=== PATIENT | male | born 1930 | race Caucasian/White ===

== ENCOUNTER 2017-01-03 21:06 | Inpatient (IN) | payer MEDICARE, OTHER ==
[~2017-01-03] VITALS: Ht 177.8 cm; Wt 75.0 kg
[~2017-01-03 21:06] MED LIST: AMLO10 PO; ASPI325T PO; FURO40TA PO; LEVE250 PO; LEVO175T2 PO; LISI-363 PO; MEVA40TA6 PO
[2017-01-03 22:13] VITALS: BP 138/97; PULSE 114; RESP 16; TEMP 98.8; O2SAT 95
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
[2017-01-03 23:44] LABS: AUTOMATED NEUTROPHIL # 6.7 TH/MM3 (1.8-7.7); BASOPHIL % 0.6 % (0.0-2.0); EOSINOPHIL % 0.6 % (0.0-4.0); HEMATOCRIT 40.5 % (39.0-51.0); HEMO FLAGS DIFF FINAL; LYMPH % 13.2 % (9.0-44.0); LYMPHOCYTE # 1.1 TH/MM3 (1.0-4.8); MEAN CELL VOLUME 93.5 FL (80.0-100.0); MEAN CORPUSCULAR HEMOGLOBIN 31.9 PG (27.0-34.0); MEAN CORPUSCULAR HGB CONC 34.1 % (32.0-36.0); MONO % 5.3 % (0.0-8.0); NEUT % 80.3 % (16.0-70.0); PLATELET COUNT 138 TH/MM3 (150-450); RED BLOOD COUNT 4.33 MIL/MM3 (4.50-5.90); RED CELL DISTRIBUTION WIDTH 14.5 % (11.6-17.2); WHITE BLOOD COUNT 8.3 TH/MM3 (4.0-11.0)
[2017-01-04 00:03] LABS: ALT (GPT) 17 U/L (12-78); ANION GAP 7 MEQ/L (5-15); AST (GOT) 30 U/L (15-37); BICARBONATE 28.1 MEQ/L (21.0-32.0); BLOOD UREA NITROGEN 42 MG/DL (7-18); CHLORIDE 110 MEQ/L (98-107); GLOMERULAR FILTRATION RATE 37 ML/MIN (>89); SODIUM (NA) 145 MEQ/L (136-145)
[2017-01-04 00:05] LABS: ALKALINE PHOSPHATASE 53 U/L (45-117); TOTAL BILIRUBIN ADULT 0.7 MG/DL (0.2-1.0)
[2017-01-04 00:06] LABS: POTASSIUM 4.2 MEQ/L (3.5-5.1)
[2017-01-04 05:13] LABS: BACTERIA, URINE RARE /hpf; BLOOD, URINE NEG (NEG); GLUCOSE,URINE TRACE mg/dL (NEG); HYALINE CAST, URINE 8 /lpf (RARE); KETONE, URINE TRACE mg/dL (NEG); MUCUS URINE FEW /lpf (OCC); NITRITE,URINE NEG (NEG); SQUAMOUS EPITHELIAL CELL URINE <1 /hpf (0-5); URINE COLOR YELLOW (YELLW/STRAW)
[2017-01-04 05:14] LABS: COMMENT (UR) CULT NOT INDICATED; CULTURE IF INDICATED CULT NOT INDICATED
[2017-01-04 05:19] LABS: AMPHETAMINE, URINE NEG (NEG); BARBITURATES, URINE NEG (NEG); COCAINE, URINE NEG (NEG)
[2017-01-04 06:15] VITALS: BP 170/91; PULSE 100; RESP 18; TEMP 97.8; O2SAT 96
[2017-01-04] MEDS ORDERED: LORazepam 0.5 MG TAB age > 65 yrs PO PRN (06:15)
[2017-01-04] MEDS ORDERED: ALUMINUM/MAGNESIUM/SIMETH 30 ML CUP PO PRN (06:15)
[2017-01-04] MEDS ORDERED: ACETAMINOPHEN 325 MG TAB PO PRN (06:15)
[2017-01-04] MEDS ORDERED: MAGNESIUM HYDROXIDE SUSP 30 ML CUP PO PRN (06:15)
[2017-01-04] MEDS ORDERED: LORazepam 2 MG/ML VIAL - age > 65 yrs IM PRN (06:15)
[2017-01-04] MEDS ORDERED: amLODIPine BESYLATE 5 MG TAB PO SCH (09:00)
[2017-01-04] MEDS ORDERED: LISINOPRIL 20 MG TAB PO SCH (09:00)
[2017-01-04] MEDS ORDERED: FUROSEMIDE 40 MG TAB PO SCH (09:00)
[2017-01-04] MEDS ORDERED: levETIRAcetam 500 MG/5 ML UDC PO SCH (09:00)
[2017-01-04] MEDS ORDERED: PRAVASTATIN SOD 40 MG TAB PO SCH (09:00)
[2017-01-04] MEDS ORDERED: ASPIRIN 325 MG TAB PO SCH (09:00)
[2017-01-04 10:29] VITALS: BP 122/57; PULSE 112; RESP 16
[2017-01-04 10:56] LABS: FREE T4 0.67 NG/DL (0.76-1.46); HDL CHOLESTEROL 53.6 MG/DL (40.0-60.0); LDL CHOLESTEROL 84 MG/DL (0-99)
--- NOTE | 2017-01-04 14:00 | EKG ---
Date Performed: 01/04/2017 Time Performed: 10:13:00 PTAGE: 86 years EKG: ATRIAL FIBRILLATION WITH RAPID VENTRICULAR RESPONSE INDETERMINATE AXIS RIGHT BUNDLE BRANCH BLOCK ABNORMAL ECG Compared to PREVIOUS TRACING , right bundle branch block is new, clinical correlation is recommended. PREVIOUS TRACIN03/02/2016 16.01 DOCTOR: Jet Davis Interpretating Date/Time 01/04/2017 13:58:32
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
[2017-01-04 16:26] LABS: HEMOGLOBIN A1a 1.4 %; HEMOGLOBIN A1b 0.8 %; HEMOGLOBIN Ao 84.5 %; HEMOGLOBIN F 0.9 %; HEMOGLOBIN LA1C 2.1 %; HEMOGLOBIN P3 4.1 %
[2017-01-05] MEDS ORDERED: LEVOTHYROXINE SODIUM 112 MCG TAB PO SCH (06:00)
[2017-01-05] MEDS ORDERED: LEVOTHYROXINE SODIUM 25 MCG TAB PO SCH (06:00)
[2017-01-05] MEDS ORDERED: LISI-515 PO (09:17)
[2017-01-05] MEDS ORDERED: SINE10100 PO (09:17)
[2017-01-05] MEDS ORDERED: LEVE250 PO (09:17)
[2017-01-05] MEDS ORDERED: LEVO.15 PO (09:17)
[2017-01-05] MEDS ORDERED: COUM5TAB PO (09:18)
--- NOTE | 2017-01-06 10:12 | RADRPT ---
EXAM DATE/TIME: 01/06/2017 09:50 [place] COMPARISON: CT BRAIN W/O CONTRAST, March 02, 2016, 15:45. INDICATIONS : Altered mental status RADIATION DOSE: 36.24 CTDIvol (mGy) MEDICAL HISTORY : Non-responsive. SURGICAL HISTORY : Non-responsive. ENCOUNTER: Initial ACUITY: 4 - 6 days PAIN SCALE: Non-responsive LOCATION: cranial TECHNIQUE: Multiple contiguous axial images were obtained of the head. Using automated exposure control and adj ustment of the mA and/or kV according to patient size, radiation dose was kept as low as reasonably a chievable to obtain optimal diagnostic quality images. DICOM format image data is available electro nically for review and comparison. FINDINGS: CEREBRUM: The exam demonstrates old areas of cortical infarct in the occipital cortex bilaterally. These are st able compared to previous dated 03/02/16. The ventricles are normal in size and configuration. No mass is identified. No findings to indicate acute cortical infarction are seen by CT. No acute intracrani al hemorrhage is present. POSTERIOR FOSSA: The cerebellum and brainstem are intact. The 4th ventricle is midline. The cerebellopontine angle i s unremarkable. EXTRACRANIAL: The visualized portion of the orbits is intact. SKULL: The calvaria is intact. No evidence of skull fracture. CONCLUSION: Old areas of cortical infarct involving the occipital cortex bilaterally unchanged from prior exam. N o acute abnormality is identified. Carter Ennis MD on January 06, 2017 at 10:07 Board Certified Radiologist. This report was verified electronically.
== END 2017-01-04 15:40 | disposition still patient (30) | DRG 880 ==
LOC: NEPC 21:06 → NEDA 01-04 05:44 → H250 01-04 06:00
PROVIDERS: ADMIT Psychiatry & Neurology Psychiatry; ATTEND Psychiatry & Neurology Psychiatry
DX: F05 Delirium due to known physiological condition (principal); G30.9 Alzheimer's disease, unspecified; F02.81 Dementia in other diseases classified elsewhere, unspecified severity, with behavioral disturbance; I48.91 Unspecified atrial fibrillation; G40.909 Epilepsy, unspecified, not intractable, without status epilepticus; I10 Essential (primary) hypertension; K21.9 Gastro-esophageal reflux disease without esophagitis; Z79.82 Long term (current) use of aspirin; E03.9 Hypothyroidism, unspecified
CPT/HCPCS: 80053; 80061; 80307; 81001; 82607; 83036; 84439; 84443; 85025; 85652; 86038; 93005

== ENCOUNTER 2017-01-04 16:03 | Inpatient (IN) | payer MEDICARE, OTHER ==
[2017-01-04 16:00] VITALS: BP 149/84; PULSE 126; RESP 18; TEMP 98.8; O2SAT 99
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
[2017-01-04] MEDS: SODIUM CHLOR 0.9% 1000 ML INJ 1,000 ML IV SCH (17:00)
[2017-01-04] MEDS ORDERED: ONDANSETRON HCL 4 MG/2 ML VIAL IV PUSH PRN (17:30)
[2017-01-04] MEDS ORDERED: CALCIUM CARBONATE 500 MG CHEWABLE TAB CHEW PRN (17:30)
[2017-01-04 18:00] VITALS: PULSE 90
[2017-01-04 20:00] VITALS: BP 138/100; PULSE 90; RESP 20; TEMP 98; O2SAT 98
[2017-01-04 20:14] LABS: INTERNATIONAL NORMALIZED RATIO 2.8 RATIO; PROTHROMBIN TIME - PATIENT 32.2 SEC (9.8-11.6)
[2017-01-04] MEDS ORDERED: LORazepam 2 MG/ML VIAL IV PUSH ONE (21:00)
[2017-01-04] MEDS ORDERED: amLODIPine BESYLATE 5 MG TAB PO SCH (21:00)
[2017-01-04] MEDS: levETIRAcetam 250 MG TAB PO SCH (21:00)
[2017-01-04] MEDS ORDERED: LORazepam 2 MG/ML VIAL IV PUSH PRN (22:00)
[2017-01-04] MEDS ORDERED: cloNIDine HCL 0.1 MG TAB PO PRN (22:15)
[2017-01-04 22:52] VITALS: O2SAT 94
[2017-01-04] MEDS ORDERED: CHLORHEXIDINE GLUCONATE 2 % 1 PACK (2 CLOTHS)(extra cloths) TOPICAL PRN (23:00)
[2017-01-05] VITALS: BP 137/83; PULSE 87; RESP 23; TEMP 98.1; O2SAT 97
[2017-01-05] MEDS: SODIUM CHLOR 0.9% 1000 ML INJ 1,000 ML IV SCH (02:38)
[2017-01-05 04:00] VITALS: BP 171/96; PULSE 72; PULSE 75; RESP 28; TEMP 98; O2SAT 96
[2017-01-05] MEDS ORDERED: CHLORHEXIDINE GLUCONATE 2 % 1 PACK (2 CLOTHS)(taper/protocol) TOPICAL SCH (04:00)
[2017-01-05 05:24] LABS: INTERNATIONAL NORMALIZED RATIO 2.4 RATIO; PROTHROMBIN TIME - PATIENT 27.6 SEC (9.8-11.6)
[2017-01-05 05:43] LABS: BICARBONATE 28.7 MEQ/L (21.0-32.0); POTASSIUM 3.8 MEQ/L (3.5-5.1)
[2017-01-05] MEDS ORDERED: LEVOTHYROXINE SODIUM 150 MCG TAB PO SCH (06:00)
[2017-01-05 08:00] VITALS: BP 121/76; PULSE 87; PULSE 88; RESP 28; TEMP 98; O2SAT 96
[2017-01-05] MEDS: levETIRAcetam 250 MG TAB PO SCH (08:37)
[2017-01-05] MEDS ORDERED: CARBIDOPA/LEVODOPA 10 MG/100 MG TAB PO SCH (09:00)
[2017-01-05] MEDS ORDERED: LISINOPRIL 20 MG TAB PO SCH (09:00)
[2017-01-05] MEDS ORDERED: amLODIPine BESYLATE 5 MG TAB PO SCH (09:00)
--- NOTE | 2017-01-05 09:12 | HHI.DCPOC ---
Discharge Care Plan Diagnosis: (1) Acute worsening of stage 3 chronic kidney disease (2) Chronic a-fib (3) Parkinson disease (4) Hypothyroidism (5) Hx of seizure disorder (6) Hypertension (7) Dementia Goals to Promote Your Health * To prevent worsening of your condition and complications * To maintain your health at the optimal level Directions to Meet Your Goals Take your medications as prescribed Follow your dietary instruction Follow activity as directed Keep your appointments as scheduled Take your immunizations and boosters as scheduled If your symptoms worsen call your PCP, if no PCP go to Urgent Care Center or Emergency Room Smoking is Dangerous to Your Health. Avoid second hand smoke Call the 24-hour hour crisis hotline for domestic abuse at Obie Abbott MD Jan 05, 2017 09:12
[2017-01-05] MEDS ORDERED: LEVE250 PO (09:17)
[2017-01-05] MEDS ORDERED: LISI-515 PO (09:17)
[2017-01-05] MEDS ORDERED: SINE10100 PO (09:17)
[2017-01-05] MEDS ORDERED: LEVO.15 PO (09:17)
[2017-01-05] MEDS ORDERED: COUM5TAB PO (09:18)
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
== END 2017-01-05 09:40 | DRG 684 ==
LOC: HIMN 16:03
PROVIDERS: ADMIT Hospitalist; ATTEND Hospitalist
DX: N17.9 Acute kidney failure, unspecified (principal); E86.0 Dehydration; D69.6 Thrombocytopenia, unspecified; G20 Parkinson's disease; I48.2 Chronic atrial fibrillation; F03.90 Unspecified dementia, unspecified severity, without behavioral disturbance, psychotic disturbance, mood disturbance, and anxiety; I12.9 Hypertensive chronic kidney disease with stage 1 through stage 4 chronic kidney disease, or unspecified chronic kidney disease; E89.0 Postprocedural hypothyroidism; E55.9 Vitamin D deficiency, unspecified; N18.3 Chronic kidney disease, stage 3 (moderate); G40.909 Epilepsy, unspecified, not intractable, without status epilepticus; E78.5 Hyperlipidemia, unspecified; Z86.73 Personal history of transient ischemic attack (TIA), and cerebral infarction without residual deficits; K21.9 Gastro-esophageal reflux disease without esophagitis; K44.9 Diaphragmatic hernia without obstruction or gangrene; N40.0 Benign prostatic hyperplasia without lower urinary tract symptoms; Z86.010 Personal history of colon polyps
CPT/HCPCS: 80048; 85610; 87641; J2060; J7030

== ENCOUNTER 2017-01-05 09:23 | Inpatient (IN) | payer MEDICARE, OTHER ==
[~2017-01-05 09:23] MED LIST changes: +COUM5TAB PO; +LEVO.15 PO; +LISI-515 PO; +SINE10100 PO
[2017-01-05 11:13] VITALS: BP 149/86; PULSE 86; RESP 17; TEMP 97.4; O2SAT 100
[2017-01-05] MEDS ORDERED: LORazepam 2 MG/ML VIAL IM PRN (11:30)
[2017-01-05] MEDS ORDERED: ACETAMINOPHEN 325 MG TAB PO PRN (11:30)
[2017-01-05] MEDS ORDERED: ALUMINUM/MAGNESIUM/SIMETH 30 ML CUP PO PRN (11:30)
[2017-01-05] MEDS ORDERED: LORazepam 1 MG TAB PO PRN (11:30)
[2017-01-05] MEDS ORDERED: MAGNESIUM HYDROXIDE SUSP 30 ML CUP PO PRN (11:30)
[2017-01-05] MEDS: LORazepam 2 MG/ML VIAL IM PRN (17:30)
[2017-01-05 18:01] VITALS: BP 92/52; PULSE 68; RESP 15; TEMP 97.6; O2SAT 95
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
[2017-01-05] MEDS: HALOPERIDOL 0.5 MG TAB PO SCH (21:00)
[2017-01-05] MEDS ORDERED: amLODIPine BESYLATE 5 MG TAB PO SCH (21:00)
[2017-01-05] MEDS: levETIRAcetam 250 MG TAB PO SCH (21:00)
[2017-01-06] MEDS: LEVOTHYROXINE SODIUM 150 MCG TAB PO SCH (06:00)
[2017-01-06 07:04] VITALS: BP 157/98; PULSE 105; RESP 18; TEMP 96.9; O2SAT 96
[2017-01-06] MEDS: levETIRAcetam 250 MG TAB PO SCH (08:13)
[2017-01-06] MEDS: LISINOPRIL 20 MG TAB PO SCH (08:13)
[2017-01-06] MEDS: HALOPERIDOL 0.5 MG TAB PO SCH ×2 (08:13→21:00)
[2017-01-06] MEDS: ASPIRIN 325 MG TAB PO SCH (08:13)
[2017-01-06] MEDS: PRAVASTATIN SOD 40 MG TAB PO SCH (08:13)
[2017-01-06] MEDS ORDERED: CARBIDOPA/LEVODOPA 10 MG/100 MG TAB PO SCH (09:00)
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
[2017-01-06 12:30] VITALS: BP 100/68; PULSE 100; RESP 18; TEMP 98.6; O2SAT 97
--- NOTE | 2017-01-06 14:24 | PD.PSY.CON ---
Provisional Diagnosis Admission Date Jan 05, 2017 at 09:34 History of Present Illness Service Psychiatry Consult Requested By Dr. esquivel Reason for Consult Second opinion Primary Care Physician Jet Gaines MD HPI Patient is an 86-year-old male admitted to Dr. mathews's service under the act. His H&P reviewed and agreed with. Patient seen by me in his room patient somewhat irritable confused confusion all 4 spheres and able to care for himself. Dr. mathews has done first opinion petition supporting I agree patient meets criteria for involuntary psychiatric hospitalization on the thus will cosign second opinion petition supporting Past Family Social History Coded Allergies: *MDRO Multi-Drug Resistant Organism (Verified Adverse Reaction, Unknown, MRSA, 01/05/17) MRSA PCR (narers) - POSITIVE - 01/04/17 Active Scripts Levothyroxine (Synthroid)150 Mcg [id number] Mcg PO DAILY@0600 #0 TAB Prov:Obie Abbott MD 01/05/17 Lisinopril 20 Mg Tab20 Mg PO DAILY #0 TAB Prov:Obie Abbott MD 01/05/17 Levetiracetam (Keppra)250 Mg [id number] Mg PO Q12HR #0 TAB Prov:Obie Abbott MD 01/05/17 Carbidopa-Levodopa (Sinemet)10-100 Mg Tab1 Tab PO DAILY #0 TAB Prov:Obie Abbott MD 01/05/17 Reported Medications Warfarin (Coumadin)5 Mg Tab5 Mg PO DAILY #30 TAB Ref 0 01/05/17 Aspirin (Aspirin 325 Mg Tab)325 Mg Hgd466 Mg PO DAILY 10/09/14 Furosemide 40 Mg Tab40 Mg PO DAILY 11/27/11 Lovastatin (Mevacor)40 Mg Tab40 Mg PO DAILY 12/05/10 Amlodipine Besylate (Norvasc)10 Mg Tab5 Mg PO BID 12/05/10 Discontinued Reported Medications Lisinopril 20 mg 20 Mg Tab1 Tab PO BID 03/02/16 Levothyroxine Sodium (Levothyroxine 175 mcg)175 Mcg Vfr412 Mcg PO DAILY 10/09/14 Levetiracetam (Keppra)250 Mg [id number] Mg PO BID 11/27/11 Current Medications Medications (Trade) Dose Ordered Sig/Shilo Route Start Time Stop Time Status Last Admin (Tylenol) 650 mg Q4H PRN PO 01/05/17 11:30 (Milk Of Magnesia Liq) 30 ml DAILY PRN PO 01/05/17 11:30 (Mag-Al Plus Susp Liq) 30 ml Q6H PRN PO 01/05/17 11:30 (Aspirin) 325 mg DAILY PO 01/06/17 09:00 01/06/17 08:13 (Synthroid) 150 mcg DAILY@0600 PO 01/06/17 06:00 (Prinivil) 20 mg DAILY PO 01/06/17 09:00 01/06/17 08:13 (Pravachol) 40 mg DAILY PO 01/06/17 09:00 01/06/17 08:13 (Coumadin Booklet) 1 ONCE ONCE .XX 01/06/17 16:00 01/06/17 16:01 (Ativan Inj) 0.5 mg Q6H PRN IM 01/05/17 17:30 01/05/17 17:30 (Haldol) 0.5 mg BID PO 01/05/17 21:00 01/06/17 08:13 (Keppra) 500 mg Q12HR PO 01/06/17 21:00 Physical Exam Vital Signs Vital Signs Date Time Temp Pulse Resp B/P Pulse Ox O2 Delivery O2 Flow Rate FiO2 01/06/17 12:30 98.6 100 18 100/68 97 01/05/17 20:00 Nasal Cannula 3.00 I/O 01/05/17 01/05/17 01/06/17 08:00 16:00 00:00 Intake Total 25 ml Balance 25 ml Mental Status Examination Speech: Other (markedly disorganized) Orientation: Person (vaguely) Memory: Impaired (describe) Thought Process: Other (markedly disorganized) Thought Content: Other (disorganized) Language Poor Fund of Knowledge Poor Hallucination Type: None (deny) Attention and Concentration: Easily Distracted Suicidal Ideation: No Previous Suicide Attempts: No Homicidal Ideation: No Previous Homicide Attempts: No Insight: Poor Judgment: Poor Affect: Other (slight increase range intensity) Mood: Irritable Motor Activity: Abnormal gait-specify Assessment & Plan Problem List: (1) Dementia ICD Code: F03.90 Assessment & Plan Estimated LOS: Walter Garza MD Jan 06, 2017 14:24
[2017-01-06] MEDS ORDERED: WARFARIN SOD 5 MG TAB PO SCH (16:00)
[2017-01-06 18:00] VITALS: BP 114/79; PULSE 67; RESP 18; TEMP 97.5; O2SAT 94
[2017-01-06] MEDS: levETIRAcetam 500 MG TAB PO SCH (21:00)
[2017-01-06] MEDS: LORazepam 2 MG/ML VIAL IM PRN (21:00)
[2017-01-07] MEDS: LEVOTHYROXINE SODIUM 150 MCG TAB PO SCH (06:00)
[2017-01-07 06:11] VITALS: BP 165/92; PULSE 98; RESP 16; TEMP 97.2; O2SAT 97
[2017-01-07] MEDS: levETIRAcetam 500 MG TAB PO SCH ×2 (11:26→21:02)
[2017-01-07] MEDS: ASPIRIN 325 MG TAB PO SCH (11:26)
[2017-01-07] MEDS: PRAVASTATIN SOD 40 MG TAB PO SCH (11:27)
[2017-01-07] MEDS: LISINOPRIL 20 MG TAB PO SCH (11:27)
[2017-01-07] MEDS: HALOPERIDOL 0.5 MG TAB PO SCH ×2 (11:27→21:02)
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
[2017-01-07 18:00] VITALS: BP 114/76; PULSE 73; RESP 18; TEMP 98.1; O2SAT 99
[2017-01-08 06:00] VITALS: BP 179/85; PULSE 89; RESP 16; TEMP 98.1
[2017-01-08] MEDS: LEVOTHYROXINE SODIUM 150 MCG TAB PO SCH (06:40)
[2017-01-08] MEDS: levETIRAcetam 500 MG TAB PO SCH (09:00)
[2017-01-08 09:32] LABS: AUTOMATED NEUTROPHIL # 7.4 TH/MM3 (1.8-7.7); BASOPHIL % 0.5 % (0.0-2.0); EOSINOPHIL # 0.2 TH/MM3 (0-0.4); EOSINOPHIL % 1.9 % (0.0-4.0); HEMO FLAGS DIFF FINAL; LYMPH % 10.6 % (9.0-44.0); MEAN CORPUSCULAR HEMOGLOBIN 30.9 PG (27.0-34.0); MEAN CORPUSCULAR HGB CONC 32.9 % (32.0-36.0); MONO % 5.5 % (0.0-8.0); NEUT % 81.5 % (16.0-70.0); PLATELET COUNT 141 TH/MM3 (150-450); RED BLOOD COUNT 4.47 MIL/MM3 (4.50-5.90); RED CELL DISTRIBUTION WIDTH 14.7 % (11.6-17.2); WHITE BLOOD COUNT 9.1 TH/MM3 (4.0-11.0)
[2017-01-08 09:37] LABS: INTERNATIONAL NORMALIZED RATIO 1.7 RATIO; PROTHROMBIN TIME - PATIENT 18.7 SEC (9.8-11.6)
[2017-01-08 10:10] LABS: ANION GAP 8 MEQ/L (5-15); AST (GOT) 50 U/L (15-37); BICARBONATE 25.7 MEQ/L (21.0-32.0); BLOOD UREA NITROGEN 46 MG/DL (7-18); CHLORIDE 110 MEQ/L (98-107); GLOMERULAR FILTRATION RATE 47 ML/MIN (>89); POTASSIUM 4.4 MEQ/L (3.5-5.1); SODIUM (NA) 144 MEQ/L (136-145)
[2017-01-08] MEDS: PRAVASTATIN SOD 40 MG TAB PO SCH (10:44)
[2017-01-08] MEDS: ASPIRIN 325 MG TAB PO SCH (10:44)
[2017-01-08] MEDS: LISINOPRIL 20 MG TAB PO SCH (10:44)
[2017-01-08 10:47] LABS: ALKALINE PHOSPHATASE 54 U/L (45-117); ALT (GPT) 23 U/L (12-78); CREATINE KINASE 1017 U/L (39-308); HDL CHOLESTEROL 53.3 MG/DL (40.0-60.0); LDL CHOLESTEROL 70 MG/DL (0-99); TOTAL BILIRUBIN ADULT 1.4 MG/DL (0.2-1.0)
[2017-01-08] MEDS: HALOPERIDOL 0.5 MG TAB PO SCH (10:47)
[2017-01-08 11:17] LABS: CKMB 10.9 NG/ML (0.5-3.6)
[2017-01-08 16:32] LABS: HEMOGLOBIN A1a 1.1 %; HEMOGLOBIN A1b 0.8 %; HEMOGLOBIN Ao 85.2 %; HEMOGLOBIN F 0.9 %
[2017-01-08] MEDS ORDERED: levETIRAcetam 500 MG/5 ML UDC PO SCH (21:00)
== END 2017-01-08 19:30 | disposition short-term general hospital (02) | DRG 884 ==
LOC: H4EA 09:34 → H250 01-06 12:35
PROVIDERS: ADMIT Psychiatry & Neurology Psychiatry; ATTEND Psychiatry & Neurology Psychiatry
DX: F03.90 Unspecified dementia, unspecified severity, without behavioral disturbance, psychotic disturbance, mood disturbance, and anxiety (principal); N17.9 Acute kidney failure, unspecified; I48.91 Unspecified atrial fibrillation; Z78.1 Physical restraint status; E86.0 Dehydration; G20 Parkinson's disease; I12.9 Hypertensive chronic kidney disease with stage 1 through stage 4 chronic kidney disease, or unspecified chronic kidney disease; E03.9 Hypothyroidism, unspecified; F29 Unspecified psychosis not due to a substance or known physiological condition; N40.0 Benign prostatic hyperplasia without lower urinary tract symptoms; Z86.73 Personal history of transient ischemic attack (TIA), and cerebral infarction without residual deficits; N18.3 Chronic kidney disease, stage 3 (moderate); G40.909 Epilepsy, unspecified, not intractable, without status epilepticus
CPT/HCPCS: 80053; 80061; 82550; 82552; 83036; 85025; 85610; J2060

== ENCOUNTER 2017-01-08 20:24 | Inpatient (IN) | payer MEDICARE ==
[~2017-01-08] VITALS: Ht 175.3 cm; Wt 70.2 kg
[2017-01-08 19:44] VITALS: BP 145/94; PULSE 112; RESP 18; TEMP 97.8; O2SAT 98
[~2017-01-08 20:24] MED LIST changes: -LEVO175T2 PO; -LISI-363 PO
[2017-01-08] MEDS ORDERED: MAGNESIUM HYDROXIDE SUSP 30 ML CUP PO PRN ×2 (21:15→22:00)
[2017-01-08] MEDS ORDERED: SODIUM CHLORIDE 0.9% FLUSH 10 ML FLUSH IV FLUSH PRN ×2 (21:15)
[2017-01-08] MEDS ORDERED: LACTULOSE SYRUP 20 GM/30 ML CUP PO PRN ×2 (21:15→22:00)
[2017-01-08] MEDS ORDERED: BISACODYL 10 MG SUPP RECTAL PRN ×2 (21:15→22:00)
[2017-01-08] MEDS ORDERED: SENNOSIDES 8.6 MG TAB PO PRN ×2 (21:15→21:45)
[2017-01-08] MEDS ORDERED: NALOXONE HCL 0.4 MG/ML AMP IV PRN ×2 (21:15)
[2017-01-08] MEDS ORDERED: ACETAMINOPHEN 325 MG TAB PO PRN (22:00)
[2017-01-08] MEDS: D5-1/2 NS + KCL 20 MEQ INJ 1,000 ML IV SCH (23:15)
[2017-01-09] VITALS: BP 145/83; PULSE 109; RESP 18; TEMP 97.8; O2SAT 100
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
[2017-01-09] MEDS: LORazepam 2 MG/ML VIAL IV PUSH PRN ×2 (00:24→20:29)
[2017-01-09] MEDS ORDERED: LORazepam 2 MG/ML VIAL IV PRN (00:45)
[2017-01-09 04:00] VITALS: BP 161/83; PULSE 94; RESP 18; TEMP 97.5; O2SAT 96
[2017-01-09] MEDS: LEVOTHYROXINE SODIUM 150 MCG TAB PO SCH (06:55)
[2017-01-09] MEDS: D5-1/2 NS + KCL 20 MEQ INJ 1,000 ML IV SCH (06:55)
[2017-01-09 08:00] VITALS: BP 144/105; PULSE 107; RESP 20; TEMP 98; O2SAT 97
[2017-01-09 08:07] LABS: AUTOMATED NEUTROPHIL # 5.8 TH/MM3 (1.8-7.7); BASOPHIL % 0.3 % (0.0-2.0); EOSINOPHIL # 0.2 TH/MM3 (0-0.4); EOSINOPHIL % 2.6 % (0.0-4.0); HEMATOCRIT 40.8 % (39.0-51.0); HEMO FLAGS DIFF FINAL; LYMPH % 11.6 % (9.0-44.0); LYMPHOCYTE # 0.9 TH/MM3 (1.0-4.8); MEAN CELL VOLUME 95.9 FL (80.0-100.0); MEAN CORPUSCULAR HEMOGLOBIN 32.1 PG (27.0-34.0); MEAN CORPUSCULAR HGB CONC 33.5 % (32.0-36.0); MONO % 7.8 % (0.0-8.0); NEUT % 77.7 % (16.0-70.0); PLATELET COUNT 132 TH/MM3 (150-450); RED BLOOD COUNT 4.26 MIL/MM3 (4.50-5.90); RED CELL DISTRIBUTION WIDTH 14.3 % (11.6-17.2); WHITE BLOOD COUNT 7.4 TH/MM3 (4.0-11.0)
[2017-01-09 08:12] LABS: BICARBONATE 19.9 MEQ/L (21.0-32.0); POTASSIUM 3.8 MEQ/L (3.5-5.1)
[2017-01-09] MEDS ORDERED: WARFARIN SOD 5 MG TAB PO SCH (09:00)
[2017-01-09] MEDS ORDERED: SODIUM CHLORIDE 0.9% FLUSH 10 ML FLUSH IV FLUSH SCH (09:00)
[2017-01-09] MEDS ORDERED: FUROSEMIDE 40 MG TAB PO SCH (09:00)
[2017-01-09] MEDS ORDERED: DOCUSATE SODIUM 50 MG/SENNA 8.6 MG TAB PO SCH (09:00)
[2017-01-09] MEDS ORDERED: levETIRAcetam 250 MG TAB PO SCH (09:00)
[2017-01-09] MEDS: ASPIRIN 325 MG TAB PO SCH (09:53)
[2017-01-09] MEDS: CARBIDOPA/LEVODOPA 10 MG/100 MG TAB PO SCH (09:54)
[2017-01-09] MEDS: DOCUSATE SODIUM 50 MG/SENNA 8.6 MG TAB PO SCH ×2 (09:55→20:16)
[2017-01-09] MEDS: LISINOPRIL 20 MG TAB PO SCH (09:55)
[2017-01-09] MEDS: PRAVASTATIN SOD 40 MG TAB PO SCH (09:55)
[2017-01-09] MEDS: SODIUM CHLORIDE 0.9% FLUSH 10 ML FLUSH IV FLUSH SCH ×2 (09:56→20:16)
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
[2017-01-09] MEDS ORDERED: HALOPERIDOL 0.5 MG TAB PO ONE (10:45)
[2017-01-09] MEDS: SODIUM CHLOR 0.9% 1000 ML INJ 1,000 ML IV SCH ×2 (10:45→22:40)
[2017-01-09 12:00] VITALS: BP 117/67; PULSE 89; RESP 20; TEMP 97.6; O2SAT 98
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
[2017-01-09 16:02] VITALS: BP 110/58; PULSE 82; RESP 16; TEMP 98.2; O2SAT 100
[2017-01-09 20:00] VITALS: BP 155/84; PULSE 116; RESP 18; TEMP 97.7; O2SAT 97
[2017-01-09] MEDS: HALOPERIDOL 0.5 MG TAB PO SCH (20:16)
[2017-01-10] VITALS: BP 145/97; PULSE 105; RESP 18; TEMP 97.8; O2SAT 95
[2017-01-10 04:00] VITALS: BP 134/83; PULSE 105; RESP 18; TEMP 98.7; O2SAT 95
[2017-01-10] MEDS: SODIUM CHLOR 0.9% 1000 ML INJ 1,000 ML IV SCH ×2 (05:23→21:40)
[2017-01-10] MEDS: LEVOTHYROXINE SODIUM 150 MCG TAB PO SCH (05:24)
[2017-01-10 08:00] VITALS: BP 150/74; PULSE 97; RESP 20; TEMP 97.4; O2SAT 99
[2017-01-10] MEDS: DOCUSATE SODIUM 50 MG/SENNA 8.6 MG TAB PO SCH ×2 (09:00→21:46)
[2017-01-10] MEDS: SODIUM CHLORIDE 0.9% FLUSH 10 ML FLUSH IV FLUSH SCH ×2 (09:00→21:00)
[2017-01-10] MEDS: ASPIRIN 325 MG TAB PO SCH (09:08)
[2017-01-10] MEDS: HALOPERIDOL 0.5 MG TAB PO SCH (09:08)
[2017-01-10] MEDS: PRAVASTATIN SOD 40 MG TAB PO SCH (09:08)
[2017-01-10] MEDS: LISINOPRIL 20 MG TAB PO SCH (09:08)
[2017-01-10] MEDS: CARBIDOPA/LEVODOPA 10 MG/100 MG TAB PO SCH (09:08)
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
[2017-01-10 10:29] LABS: BICARBONATE 28.9 MEQ/L (21.0-32.0); POTASSIUM 4.7 MEQ/L (3.5-5.1)
[2017-01-10 12:00] VITALS: BP 140/83; PULSE 97; RESP 20; TEMP 97.6; O2SAT 100
[2017-01-10 16:00] VITALS: BP 137/88; PULSE 109; RESP 20; TEMP 97.8; O2SAT 96
[2017-01-10 20:00] VITALS: BP 146/77; PULSE 105; RESP 18; TEMP 97.6; O2SAT 95
[2017-01-11] VITALS: BP 120/85; PULSE 98; RESP 18; TEMP 97.6; O2SAT 97
[2017-01-11] MEDS: LORazepam 0.5 MG TAB PO PRN ×2 (00:49→21:31)
[2017-01-11 04:00] VITALS: BP 117/78; PULSE 92; RESP 18; TEMP 97.6; O2SAT 100
[2017-01-11] MEDS: LEVOTHYROXINE SODIUM 150 MCG TAB PO SCH (05:44)
[2017-01-11 08:15] VITALS: BP 146/86; PULSE 109; RESP 20; TEMP 97.7; O2SAT 96
[2017-01-11 08:40] LABS: AUTOMATED NEUTROPHIL # 7.5 TH/MM3 (1.8-7.7); BASOPHIL % 0.3 % (0.0-2.0); EOSINOPHIL # 0.1 TH/MM3 (0-0.4); EOSINOPHIL % 1.6 % (0.0-4.0); HEMATOCRIT 42.3 % (39.0-51.0); HEMO FLAGS DIFF FINAL; LYMPH % 10.1 % (9.0-44.0); LYMPHOCYTE # 0.9 TH/MM3 (1.0-4.8); MEAN CELL VOLUME 94.2 FL (80.0-100.0); MEAN CORPUSCULAR HEMOGLOBIN 31.6 PG (27.0-34.0); MEAN CORPUSCULAR HGB CONC 33.6 % (32.0-36.0); MONO % 8.3 % (0.0-8.0); NEUT % 79.7 % (16.0-70.0); PLATELET COUNT 159 TH/MM3 (150-450); WHITE BLOOD COUNT 9.4 TH/MM3 (4.0-11.0)
[2017-01-11] MEDS: PRAVASTATIN SOD 40 MG TAB PO SCH (09:08)
[2017-01-11] MEDS: LISINOPRIL 20 MG TAB PO SCH (09:09)
[2017-01-11] MEDS: DOCUSATE SODIUM 50 MG/SENNA 8.6 MG TAB PO SCH ×2 (09:09→21:31)
[2017-01-11] MEDS: ASPIRIN 325 MG TAB PO SCH (09:09)
[2017-01-11] MEDS: SODIUM CHLORIDE 0.9% FLUSH 10 ML FLUSH IV FLUSH SCH ×2 (09:10→21:31)
[2017-01-11] MEDS: SODIUM CHLOR 0.9% 1000 ML INJ 1,000 ML IV SCH ×2 (09:10→21:32)
[2017-01-11 10:39] LABS: ANION GAP 12 MEQ/L (5-15); AST (GOT) 59 U/L (15-37); BICARBONATE 22.8 MEQ/L (21.0-32.0); BLOOD UREA NITROGEN 35 MG/DL (7-18); CHLORIDE 110 MEQ/L (98-107); GLOMERULAR FILTRATION RATE 70 ML/MIN (>89); POTASSIUM 3.6 MEQ/L (3.5-5.1); SODIUM (NA) 145 MEQ/L (136-145)
[2017-01-11 10:57] LABS: ALKALINE PHOSPHATASE 53 U/L (45-117); ALT (GPT) 30 U/L (12-78); CREATINE KINASE 730 U/L (39-308); TOTAL BILIRUBIN ADULT 1.6 MG/DL (0.2-1.0)
[2017-01-11 11:21] LABS: CKMB 8.1 NG/ML (0.5-3.6)
[2017-01-11 12:10] VITALS: BP 131/71; PULSE 97; RESP 19; TEMP 98; O2SAT 96
--- NOTE | 2017-01-11 14:55 | PD.CONS ---
Consult Service Palliative Care . Consult Requested By Dr. Abbott . Primary Care Physician Jet Gaines MD . Reason for Consultation a. To assist with evaluation and management of symptoms including: Confusion , agitation, decreased appetite b. To assist medical decision maker(s) with: better understanding of current medical conditions; weighing benefits/burdens of medical treatment options; making medical treatment decisions. . HPI History of Present Illness Mr. Pina is an 86-year-old male with Alzheimer's dementia who was brought to [facility] ED on 01/03/2017 by the [employer] under the Phipps act. Reportedly the patient was unable to recognize his family members and began spraying them with RAID, then locked them out of the house and was threatening to harm them if they tried to enter the house. The patient was exhibiting cognitive deficits and a basic dementia workup was ordered. He was also exhibiting some psychotic symptoms in the form of delusions of persecution. The patient was initially going to a admitted to psych but had to be transferred to a medical floor secondary to dehydration with VIVIAN and atrial fibrillation with RVR. Since the initial admission, the patient has moved back and forth between the psych floor and medical unit multiple times secondary to FTT, inadequate nutritional intake, dehydration and intermittent atrial fibrillation with RVR. He is currently in room 1417 where IV fluids are being administered. CT head on 01/06/2017 code old areas of cortical infarct involving the occipital cortex bilaterally unchanged from prior exam; no acute abnormalities were identified. Psychiatry continues to follow this patient who is exhibiting ongoing agitation and intermittent aggressiveness. Most recent diagnostic data available on 01/11/2017 includes: * WBC: 9.4, hemoglobin 14.2, hematocrit 42.3, platelets 159, neutrophils 79.7% * Sodium: 145, potassium 3.6, chloride 110, carbon dioxide 22.8, glucose 89, calcium 8.7 * BUN: 35, creatinine 1.02, GFR 70 * Total bilirubin: 1.6, AST 59, ALT 30, alkaline phosphatase 53 * Total creatine kinase: 7:30 CK-MB: 8.1 * Total protein: 6.2, albumin 3.6 Palliative Care was consulted to assist with symptom management and to discuss with the patient/family the benefits and burdens of his current illnesses and the options regarding future care. Patient is confused and tearful on exam, speech is nonsensical at times. No evidence of acute distress observed; he denies shortness of breath or pain. Multiple bruising is noted on upper and lower extremities bilaterally. Patient is in non-violence soft restraints for safety. . Function/Cognitive Trajectory Per family, patient has a history of Alzheimer's disease but was fairly independent with ADLs prior to this hospitalization. They state that they did notice the patient was becoming increasingly forgetful and recognized some of the utility bills were not being paid. Additionally, the patient was described as being "mean" to his (Gideon) who has more advanced dementia and was dependent on the patient for much of her care. . Review of Systems ROS Limitations: Clinical Condition (ROS limited secondary to patient's confusion; additional information obtained from reviewing previous notes and family report.), Altered Mental Status, Poor Historian Constitutional: COMPLAINS OF: Fatigue, Change in appetite (poor appetite) Ears, nose, mouth, throat: DENIES: Hearing loss, Epistaxis Respiratory: DENIES: Hemoptysis, Shortness of breath Cardiovascular: DENIES: Lower Extremity Edema Gastrointestinal: DENIES: Abdominal pain Hematologic/Lymphatics: COMPLAINS OF: Bruising Neurologic: COMPLAINS OF: Seizures Psychiatric: COMPLAINS OF: Anxiety, Depression, Delusions Past Family Social History Coded Allergies: *MDRO Multi-Drug Resistant Organism (Verified Adverse Reaction, Unknown, MRSA, 01/05/17) MRSA PCR (grazyna) - POSITIVE - 01/04/17 Past Medical History Alzheimer's disease Hypertension Hyperlipidemia History of seizure disorder Atrial fibrillation with RVR Hypothyroidism Parkinson's disease BPH CKI GERD Vitamin D deficiency History of CVA Erectile dysfunction . Past Surgical History Pending family meeting . Reported Medications Lisinopril 20 mg daily Aspirin 325 Mg Tab (Aspirin) 325 Mg Tab 325 Mg PO DAILY Levothyroxine 150mcg daily Keppra ([id number] bid Furosemide 40 Mg Tab 40 Mg PO DAILY Mevacor (Lovastatin) 40 Mg Tab 40 Mg PO DAILY Norvasc (Amlodipine Besylate) 5mg po bid carbidopa/levadopa 25/100mg daily coumadin 5mg daily [id number] daily . Current Medications Medications (Trade) Dose Ordered Sig/Shilo Route Start Time Stop Time Status Last Admin (Norvasc) 5 mg BID PO 01/09/17 09:00 01/11/17 09:08 (Aspirin) 325 mg DAILY PO 01/09/17 09:00 01/11/17 09:09 (Synthroid) 150 mcg DAILY@0600 PO 01/09/17 06:00 01/11/17 05:44 (Prinivil) 20 mg DAILY PO 01/09/17 09:00 01/11/17 09:09 (Pravachol) 40 mg DAILY PO 01/09/17 09:00 01/11/17 09:08 (Tylenol) 650 mg Q4H PRN PO 01/08/17 22:00 (Narcan Inj) 0.4 mg UNSCH PRN IV 01/08/17 21:15 (NS Flush) 2 ml UNSCH PRN IV FLUSH 01/08/17 21:15 (NS Flush) 2 ml BID IV FLUSH 01/09/17 09:00 01/11/17 09:10 (Narcan Inj) 0.4 mg UNSCH PRN IV 01/08/17 21:15 (Lauren-Colace) 1 tab BID PO 01/09/17 09:00 01/11/17 09:09 (Milk Of Magnesia Liq) 30 ml Q12HR PRN PO 01/08/17 22:00 (Senokot) 17.2 mg Q12HR PRN PO 01/08/17 21:45 (Dulcolax Supp) 10 mg DAILY PRN RECTAL 01/08/17 22:00 Lactulose 30 ml 30 ml DAILY PRN PO 01/08/17 22:00 (NS 1000 ml Inj) 1,000 ml @ 84 mls/hr [id number] IV 01/09/17 10:45 01/11/17 09:10 (Ativan) 0.5 mg Q12HR PRN PO 01/10/17 13:15 01/11/17 00:49 . Family History Patient's father from an [place]. His mother from, patient's secondary to a stroke. . Substance Use Tobacco: Previous smoker Alcohol: No recent EtOH consumption Prescription med abuse: None known Illicits: None known . Psychosocial History Patient was born and raised in [place]. 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 He has 1 brother and 1 sister, both are . Patient has been to his , Gideon, for approximately 65 years. Together they have 2 adult sons. One son lives with the patient locally, and the other lives in [place]. Apparently the patient's also has dementia and is in the process of moving to an SNF. The patient' s granddaughter, Reema, also lives locally and has requested to speak with Palliative Care to discuss medical treatment goals moving forward. . Spiritual/Cultural Factors Sikh solomon . Living Will: Copy in medical record Health Care Surrogate: Copy in medical record Date completed: 06/21/2011 . Health Care Surrogate(s): Patient's (Gideon) is designated as the healthcare surrogate decision maker. However, she is unable to fill this role secondary to end-stage dementia. The patient's son (Higinio) is designated as the alternate health care surrogate decision maker. . Documented care wishes: A living will was completed on June 21, 2011. Copies have been placed in the patient's paper chart and faxed to HIM to be scanned into the patient's EMR. . Today's verbally stated goals: Patient is unable to verbalized medical treatment goals due to possibly worsening confusion. . Family/friends goals: Palliative care attempted to contact the patient's son/HCS (Higinio) x 2, unable to be a message. Spoke to patient's granddaughter (Reema) and son (Darian) regarding goals of care. They indicate they want to do what the patient would want.They believe he would want his CODE STATUS be changed to no code. They also believe, given the patient's current decline and his documented care wishes , the patient would likely want to transition to comfort focused care at this time. . Ethical and Legal Issues Phone call placed to patient's primary care physician's office, Dr. Gaines. Apparently the patient has completed some written advanced directives, copies of these documents were requested. Awaiting faxed information at this time. . Physical Exam Vital Signs Date Time Temp Pulse Resp B/P Pulse Ox O2 Delivery O2 Flow Rate FiO2 01/11/17 12:10 98.0 97 19 131/71 96 01/11/17 08:15 97.7 109 20 146/86 96 01/11/17 04:00 97.6 92 18 117/78 100 01/11/17 00:00 97.6 98 18 120/85 97 01/10/17 20:00 97.6 105 18 146/77 95 01/10/17 16:00 97.8 109 20 137/88 96 . 01/10/17 01/11/17 19:00 07:00 Intake Total 0 ml 240 ml Output Total 100 ml Balance 0 ml 140 ml Intake Oral 0 ml 240 ml Output Urine Total 100 ml # Voids 1 3 # Bowel Movements 0 0 . Exam CONSTITUTIONAL/GENERAL: This is a frail, elderly male patient who is confused and tearful on exam. TUBES/LINES/DRAINS: Condom catheter, PIV 1 SKIN: No jaundice, rashes, or lesions. Ecchymoses on upper and lower extremities. Bilateral wrist with gauze dressings and what appears to be dried blood, likely secondary to chronic anticoagulation therapy. HEAD: Atraumatic. Normocephalic. EYES: Pupils equal and round and reactive. No scleral icterus. Minimal injection or drainage noted. Fundi not examined. ENT: Hearing grossly normal. Nose without bleeding or purulent drainage. NECK: Trachea midline. Supple, nontender. No palpable thyroid enlargement or nodularity. CARDIOVASCULAR: Regular rate and rhythm without murmurs, gallops, or rubs. No JVD. Peripheral pulses symmetric. RESPIRATORY/CHEST: Symmetric, unlabored respirations. Clear to auscultation. Breath sounds equal bilaterally. No wheezes, rales, or rhonchi. GASTROINTESTINAL: Abdomen soft, non-tender, nondistended. No hepato-splenomegaly , or palpable masses. No guarding. Bowel sounds present. GENITOURINARY: Without palpable bladder distension. Flannery catheter in place. MUSCULOSKELETAL: Extremities without clubbing, cyanosis, or edema. LYMPHATICS: No palpable cervical or supraclavicular adenopathy. NEUROLOGICAL: Confused, tearful. Responds to some simple questions with brief answers; speech is primarily nonsensical. PSYCHIATRIC: + Anxiety . Diagnostic Tests Laboratory Laboratory Tests Test 01/09/17 01/10/17 01/11/17 07:15 09:09 07:00 White Blood Count 7.4 TH/MM3 9.4 TH/MM3 (4.0-11.0) (4.0-11.0) Red Blood Count 4.26 MIL/MM3 4.50 MIL/MM3 (4.50-5.90) (4.50-5.90) Hemoglobin 13.7 GM/DL 14.2 GM/DL (13.0-17.0) (13.0-17.0) Hematocrit 40.8 % 42.3 % (39.0-51.0) (39.0-51.0) Mean Corpuscular Volume 95.9 FL 94.2 FL (80.0-100.0) (80.0-100.0) Mean Corpuscular Hemoglobin 32.1 PG 31.6 PG (27.0-34.0) (27.0-34.0) Mean Corpuscular Hemoglobin 33.5 % 33.6 % Concent (32.0-36.0) (32.0-36.0) Red Cell Distribution Width 14.3 % 14.0 % (11.6-17.2) (11.6-17.2) Platelet Count 132 TH/MM3 159 TH/MM3 (150-450) (150-450) Mean Platelet Volume 10.0 FL 9.8 FL (7.0-11.0) (7.0-11.0) Neutrophils (%) (Auto) 77.7 % 79.7 % (16.0-70.0) (16.0-70.0) Lymphocytes (%) (Auto) 11.6 % 10.1 % (9.0-44.0) (9.0-44.0) Monocytes (%) (Auto) 7.8 % (0.0-8.0) 8.3 % (0.0-8.0) Eosinophils (%) (Auto) 2.6 % (0.0-4.0) 1.6 % (0.0-4.0) Basophils (%) (Auto) 0.3 % (0.0-2.0) 0.3 % (0.0-2.0) Neutrophils # (Auto) 5.8 TH/MM3 7.5 TH/MM3 (1.8-7.7) (1.8-7.7) Lymphocytes # (Auto) 0.9 TH/MM3 0.9 TH/MM3 (1.0-4.8) (1.0-4.8) Monocytes # (Auto) 0.6 TH/MM3 0.8 TH/MM3 (0-0.9) (0-0.9) Eosinophils # (Auto) 0.2 TH/MM3 0.1 TH/MM3 (0-0.4) (0-0.4) Basophils # (Auto) 0.0 TH/MM3 0.0 TH/MM3 (0-0.2) (0-0.2) CBC Comment DIFF FINAL DIFF FINAL Differential Comment Sodium Level 143 MEQ/L 145 MEQ/L 145 MEQ/L (136-145) (136-145) (136-145) Potassium Level 3.8 MEQ/L 4.7 MEQ/L 3.6 MEQ/L (3.5-5.1) (3.5-5.1) (3.5-5.1) Chloride Level 112 MEQ/L 109 MEQ/L 110 MEQ/L (98-107) (98-107) (98-107) Carbon Dioxide Level 19.9 MEQ/L 28.9 MEQ/L 22.8 MEQ/L (21.0-32.0) (21.0-32.0) (21.0-32.0) Anion Gap 11 MEQ/L (5-15) 7 MEQ/L (5-15) 12 MEQ/L (5-15) Blood Urea Nitrogen 45 MG/DL (7-18) 36 MG/DL (7-18) 35 MG/DL (7-18) Creatinine 1.17 MG/DL 1.14 MG/DL 1.02 MG/DL (0.60-1.30) (0.60-1.30) (0.60-1.30) Estimat Glomerular Filtration 59 ML/MIN (>89) 61 ML/MIN (>89) 70 ML/MIN (>89) Rate Random Glucose 88 MG/DL 92 MG/DL 89 MG/DL (74-106) (74-106) (74-106) Calcium Level 8.8 MG/DL 8.9 MG/DL 8.7 MG/DL (8.5-10.1) (8.5-10.1) (8.5-10.1) Total Bilirubin 1.6 MG/DL (0.2-1.0) Aspartate Amino Transf 59 U/L (15-37) (AST/SGOT) Alanine Aminotransferase 30 U/L (12-78) (ALT/SGPT) Alkaline Phosphatase 53 U/L (45-117) Total Creatine Kinase 730 U/L (39-308) Creatine Kinase MB 8.1 NG/ML (0.5-3.6) Creatine Kinase MB % 1.1 % (0.0-4.0) Total Protein 6.2 GM/DL (6.4-8.2) Albumin 3.6 GM/DL (3.4-5.0) . Result Diagram: 01/11/17 0700 01/11/17 0700 Patient/Family Conference Present at Family Conference: Spoke with patient's granddaughter at bedside and again in conference area; also spoke to patient's son (Darian) via telephone. Attempted to contact patient' s son (Santy) 2; no voicemail was set up and was unable to leave a message. . Family Conference Location: Bedside, Hallway, Telephone Issues Discussed: * Palliative care role, purpose, approach * Additional medical, psychosocial, and spiritual history * Patients general health, functional status, and cognitive changes in the months leading up to the current hospitalization * Patient/family understanding of the current medical problems * Patient/family understanding of prognosis * Patients goals of care as best understood from advance directives and/or conversations and/or values * Current medical treatment options and benefits/burdens of those options * Likely scenarios comparing ongoing aggressive care with a transition to comfort measures only * Questions answered to the best of my ability * Palliative care contact information provided . Assessment and Plan Disease Oriented Problem List: (1) TIA (transient ischemic attack) (2) Atrial fibrillation with RVR (3) Acute worsening of stage 3 chronic kidney disease (4) Paranoid psychosis (5) Dementia (6) Failure to thrive in adult (7) Chronic a-fib (8) Hypertension (9) Hyperlipidemia (10) Hypothyroidism (11) Hx of seizure disorder (12) Parkinson disease Symptom Scale: (1) Confusion (2) Agitation (3) Decreased appetite Pertinent Non-Medical Issues Psychosocial: Patient was born and raised in [place]. 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 He has 1 brother and 1 sister, both are . Patient has been to his , Gideon, for approximately 65 years. Together they have 2 adult sons. One son lives with the patient locally, and the other lives in [place]. Apparently the patient's also has dementia and is in the process of moving to an SNF. The patient's granddaughter, Reema, also lives locally and has requested to speak with Palliative Care to discuss medical treatment goals moving forward. Spiritual: Sikh solomon Legal: Patient is currently not capacitated to participate in medical decision making. Patient's (Gideon) is designated as the healthcare surrogate decision maker. However, she is unable to fill this role secondary to end-stage dementia. The patient's son (Higinio) is designated as the alternate health care surrogate decision maker. Ethical issues impacting care: No known ethical issues impacting at this time. . Important Contacts Santy Pina, son: [phone] Darian Pina, son: ATTEMPTING TO OBTAIN PHONE NUMBER Reema granddaughter: [phone] Gideon Pina, spouse: [phone] . Prognosis Patient is an 86-year-old male with progressively worsening Alzheimer's dementia (as well as multiple comorbid conditions) who was recently brought to [facility] ED on 01/03/2017 under a [place]ipp[place] act. Since that time he has been transferred back and forth between psych and the medical floor for management of dehydration with VIVIAN, failure to thrive and atrial fibrillation with RVR ( currently a poor candidate for ongoing anticoagulation therapy). Patient remains in nonmedical soft restraints secondary to ongoing persistent agitation and aggressiveness. He is refusing to eat; BMI 22.2. A living will was completed on 06/21/2011 and indicates the patient would not want life prolonging interventions or artificial nutrition in the event that he had a end- stage condition, terminal condition or was in a persistent vegetative state. If the patient continues the current disease trajectory; his overall prognosis would be poor. . Code Status: Full Code Plan * FULL CODE * Decision-making: Patient is currently not capacitated to participate in medical decision making. Patient's (Gideon) is designated as the healthcare surrogate decision maker. However, she is unable to fill this role secondary to end-stage dementia. The patient's son (Higinio) is designated as the alternate health care surrogate decision maker. * A living will was completed on June 21, 2011. Copies have been placed in the patient's paper chart and faxed to HIM to be scanned into the patient's EMR. * Goals: Goals remain aggressive pending further conversations with family members * Palliative care attempted to contact the patient's son/HCS (Higinio) x 2, unable to be a message. Spoke to patient's granddaughter (Reema) and son (Darian) regarding goals of care. They indicate they want to do what the patient would want.They believe he would want his CODE STATUS be changed to no code. They also believe, given the patient's current decline and his documented care wishes , the patient would likely want to transition to comfort focused care at this time. * Symptom managementdecreased appetite: Current nutritional intake is not enough to sustain this patient, and his living will indicates he is not amenable to artificial nutrition. BMI: 22.2 Total protein: 6.2, albumin 3.6. Dietary has been consulted, recommendations for supplemental Ensure shakes for added nutrition. * Symptom managementagitation: Having ongoing, persistent agitation requiring non-medical restraints. Psychiatry is following. Recommendations to avoid Haldol which is contraindicated in patients with Parkinson's disease. * Symptom managementconfusion: Persistent confusion likely secondary to progressively worsening Alzheimer's disease, recent hospitalization, electrolyte imbalances/dehydration. Patient currently in nonmedical soft restraints for safety. Requiring ongoing monitoring for safety/comfort, reassurance and redirection when appropriate. Providing ongoing education and support to patient/family. * Palliative care contact information provided to the patient's granddaughter and son (Darian). * Discussed with patient's nurse (Starr) and case management. * Patient appropriate for hospice will referral, discussed with patient's granddaughter and son (Darian) who are indicating comfort focus goals. However, son Son) is the designated health care surrogate and was not reachable via telephone earlier today. In the event that goals remain aggressive, placement will be difficult secondary to ongoing agitation/aggressiveness and poor nutritional intake. * Palliative care will continue to follow this patient throughout his hospitalization to establish trust, assist with symptom management and clarification of medical treatment goals. . Thank you for the opportunity to participate in the care of Mr. Pina. . Attestation To help prompt me to consider important information that might be impacting today's encounter and assessment, information from prior notes written by myself or my colleagues may have been "brought forward" into today's note. My signature on this note, however, is an attestation that I personally performed the exam, history, and/or decision-making noted today, and, unless otherwise indicated, the interactions with patient, family, and staff as well as the review of records all occurred today. I also attest that the listed assessment and stated plan reflect my best clinical judgment today based on the combination of historical information, prior notes, and today's exam/ interactions. When time spent is documented, it refers only to time spent today by the signer, or if indicated, combined time spent today by collaborating physician/nurse practitioner. . Sherron Balderrama Jan 11, 2017 14:55
[2017-01-11 16:07] VITALS: BP 117/66; PULSE 104; RESP 19; TEMP 98; O2SAT 95
--- NOTE | 2017-01-11 17:47 | HHI.PR ---
Subjective Remarks Pt agitated during my visit. Pt eating poorly. Objective Vitals Vital Signs Date Time Temp Pulse Resp B/P Pulse Ox O2 Delivery O2 Flow Rate FiO2 01/11/17 16:07 98.0 104 19 117/66 95 01/11/17 12:10 98.0 97 19 131/71 96 01/11/17 08:15 97.7 109 20 146/86 96 01/11/17 04:00 97.6 92 18 117/78 100 01/11/17 00:00 97.6 98 18 120/85 97 01/10/17 20:00 97.6 105 18 146/77 95 01/10/17 01/10/17 01/11/17 15:00 23:00 07:00 Intake Total 0 ml 120 ml 120 ml Output Total 100 ml Balance 0 ml 120 ml 20 ml Intake Oral 0 ml 120 ml 120 ml Output Urine Total 100 ml # Voids 1 2 1 # Bowel Movements 0 0 0 Result Diagram: 01/11/17 0700 01/11/17 0700 Objective Remarks GENERAL: This is a well-nourished, well-developed patient, in no apparent distress. CARDIOVASCULAR: Regular rate and rhythm without murmurs, gallops, or rubs. RESPIRATORY: Clear to auscultation. Breath sounds equal bilaterally. No wheezes , rales, or rhonchi. GASTROINTESTINAL: Abdomen soft, non-tender, nondistended. Normal active bowel sounds MUSCULOSKELETAL: Extremities without clubbing, cyanosis, or edema. NEURO: Alert & Oriented to self, ABAD A/P Problem List: (1) Failure to thrive in adult Status: Acute Plan: Pt has dementia and admitted to psych unit for psychosis and spraying his family with a can of Raid. He was moved back and forth from psych to med floor for FTT and not eating. dehydration and intermittent afib/rvr At present pt not eating enough to sustain himself nursing reports that he gets very agitated and aggressive at time and restraints were placed. He refuses to eat will try to hydrate him reduce sedating meds and I think he is a poor coumadin candidate at this point prn joaquindol I think palliative consult and even hospice would be appropriate in this pt with severe dementia and now FTT and refusal to eat....obtain family goals/wishes and code status. addendum: pt granddaughter arrived and pt more cooperative for her. She would like to speak with palliative care team to work out goals as she notes the pt's children have not been involved and his is being placed in snf with dementia. 01/11/17 - appreciate input from Palliative Medicine - palliative to discuss hospice and code status with pt's son Santy, Health care surrogate. - I agree that hospice would be appropriate. (2) Dementia Status: Chronic Plan: above (3) Chronic a-fib Status: Chronic Plan: above (4) Hypertension Status: Chronic (5) Hyperlipidemia Status: Chronic (6) Hx of seizure disorder Status: Chronic (7) Hypothyroidism Status: Chronic (8) Parkinson disease Status: Chronic Dwayne Lizarraga DO Jan 11, 2017 17:47
[2017-01-11] MEDS ORDERED: LORazepam 2 MG/ML VIAL IV PUSH ONE (18:00)
[2017-01-11 20:00] VITALS: BP 156/80; PULSE 107; RESP 20; TEMP 97.8; O2SAT 100
[2017-01-12] VITALS: BP 151/87; PULSE 20; RESP 20; TEMP 97.5; O2SAT 96
[2017-01-12 04:00] VITALS: BP 138/91; PULSE 109; RESP 20; TEMP 97.3; O2SAT 100
[2017-01-12] MEDS: LEVOTHYROXINE SODIUM 150 MCG TAB PO SCH (04:45)
[2017-01-12 08:00] VITALS: BP 129/79; PULSE 91; RESP 18; TEMP 97.7; O2SAT 97
[2017-01-12] MEDS: LISINOPRIL 20 MG TAB PO SCH (09:48)
[2017-01-12] MEDS: PRAVASTATIN SOD 40 MG TAB PO SCH (09:48)
[2017-01-12] MEDS: DOCUSATE SODIUM 50 MG/SENNA 8.6 MG TAB PO SCH ×2 (09:48→21:49)
[2017-01-12] MEDS: ASPIRIN 325 MG TAB PO SCH (09:49)
[2017-01-12] MEDS: SODIUM CHLORIDE 0.9% FLUSH 10 ML FLUSH IV FLUSH SCH ×2 (09:49→21:50)
[2017-01-12] MEDS: SODIUM CHLOR 0.9% 1000 ML INJ 1,000 ML IV SCH ×2 (10:15→21:50)
--- NOTE | 2017-01-12 10:51 | HHI.HCPN ---
Palliative care continues to attempt to get in touch with patient's son, Higinio. Attempted x2 yesterday and x2 today. Unable to reach and unable to leave a message as his phone just rings. Also tried patient's home number as notes indicate son Santy was living with the patient. Also unable to reach and unable to leave a message. Left message with granddaughter Reema to inquire about additional contact information for Higinio. Currently awaiting return call. Reportedly family will be in to visit around 3pm today. Palliative care contact information left with nurse to call if family arrives. Palliative care will continue to follow throughout hospitalization. 4pm met with granddaughter Reema and brother, Darrell at patient's bedside. Reema provided additional contact for patient's son, Hiignio (#[phone] or #[phone]). Was able to speak with Higinio who reports he will be at the hospital tomorrow at 10am. Family meeting scheduled for 10am with patient's son Santy, granddaughter Reema and brother Darrell, also patient's son Darian by telephone. Patient's son Santy indicates he does not wish to participate in medical decision making. Patient's brother Darrell states he does not wish to participate because he lives out of state and feels a local person would be better. Per [place] Statutes medical proxy decision making would fall to the granddaughter Reema as patient's is currently in a longterm due to severe dementia, both sons have opted out of decision making, parents are , and brother Darrell opted out; next in hierarchy would be an adult relative. All family members indicate darrell Benavidez would be most appropriate as she lives locally and is most involved and reliable. Yasmin Begum, CONCRETE CURER Jan 12, 2017 10:51
[2017-01-12] MEDS: LORazepam 0.5 MG TAB PO PRN (13:53)
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
[2017-01-12 19:30] VITALS: BP_SYST 101; BP_SYST 134; BP_DIAS 61; BP_DIAS 83; PULSE 122; PULSE 83; RESP 20; TEMP 97.5; O2SAT 96; O2SAT 99
[2017-01-13] VITALS: BP 134/81; PULSE 103; RESP 22; TEMP 97.3; O2SAT 100
[2017-01-13] MEDS: LORazepam 0.5 MG TAB PO PRN ×2 (02:10→16:39)
[2017-01-13 05:00] VITALS: BP 121/80; PULSE 98; RESP 22; TEMP 97.8; O2SAT 100
[2017-01-13] MEDS: LEVOTHYROXINE SODIUM 150 MCG TAB PO SCH (05:19)
[2017-01-13 07:14] LABS: ANION GAP 8 MEQ/L (5-15); AST (GOT) 53 U/L (15-37); BICARBONATE 23.8 MEQ/L (21.0-32.0); BLOOD UREA NITROGEN 29 MG/DL (7-18); CHLORIDE 110 MEQ/L (98-107); GLOMERULAR FILTRATION RATE 87 ML/MIN (>89); POTASSIUM 3.6 MEQ/L (3.5-5.1); SODIUM (NA) 142 MEQ/L (136-145)
[2017-01-13 07:15] LABS: ALT (GPT) 31 U/L (12-78)
[2017-01-13 07:17] LABS: ALKALINE PHOSPHATASE 54 U/L (45-117); CREATINE KINASE 460 U/L (39-308); TOTAL BILIRUBIN ADULT 1.7 MG/DL (0.2-1.0)
[2017-01-13 07:43] LABS: CKMB 7.4 NG/ML (0.5-3.6)
[2017-01-13 08:00] VITALS: BP 141/94; PULSE 99; RESP 20; TEMP 97.7; O2SAT 90
[2017-01-13] MEDS: SODIUM CHLOR 0.9% 1000 ML INJ 1,000 ML IV SCH (10:05)
[2017-01-13] MEDS: ASPIRIN 325 MG TAB PO SCH (10:18)
[2017-01-13] MEDS: DOCUSATE SODIUM 50 MG/SENNA 8.6 MG TAB PO SCH (10:19)
[2017-01-13] MEDS: SODIUM CHLORIDE 0.9% FLUSH 10 ML FLUSH IV FLUSH SCH (10:19)
[2017-01-13] MEDS: LISINOPRIL 20 MG TAB PO SCH (10:19)
[2017-01-13] MEDS: PRAVASTATIN SOD 40 MG TAB PO SCH (10:19)
--- NOTE | 2017-01-13 11:50 | HHI.HCPN ---
Reason for visit a. To assist with evaluation and management of symptoms including: Confusion , agitation, decreased appetite b. To assist medical decision maker(s) with: better understanding of current medical conditions; weighing benefits/burdens of medical treatment options; making medical treatment decisions. . Subjective/Interval History Mr. Pina is an 86-year-old male with Alzheimer's dementia who was brought to [facility] ED on 01/03/2017 by the [place] [employer] under the Phipps act. The patient was exhibiting cognitive deficits and a basic dementia workup was ordered. He was also exhibiting some psychotic symptoms in the form of delusions of persecution. The patient was initially going to a admitted to psych but had to be transferred to a medical floor secondary to dehydration with VIVIAN and atrial fibrillation with RVR. Since the initial admission, the patient has moved back and forth between the psych floor and medical unit multiple times secondary to FTT, inadequate nutritional intake, dehydration and intermittent atrial fibrillation with RVR. Patient remains in nonmedical, soft restraints secondary to ongoing agitation and aggressiveness. Taking only bites of applesauce with medication administration, otherwise refusing to eat or drink. Odium: 142, potassium 3.6, chloride 110, carbon dioxide 23.8, glucose 85, calcium 8.8 Total bilirubin: 1.7, AST 53, ALT 31, alkaline phosphatase 54 Total creatine kinase: 460, CK-MB 7.4, CK-MB% 1.6 BUN: 29, creatinine 0.84, GFR 87 Protein: 5.8, albumin 3.4 Palliative care continues to follow this patient to assist with symptom management and clarification of medical treatment goals. Met with patient's granddaughter/HCP and brother (Darian) this morning. Patient has completed written advanced directives with state he would not want life prolonging interventions, specifically artificial nutrition, if he were found to have a terminal condition, end-stage condition or be in persistent vegetative state. Given the patient's advanced age, recent acute decline, multiple comorbid conditions and refusal to eat/drink, his life expectancy is less than 6 months. The family has requested the services for symptom management and end-of-life care; recommendations that the patient be transferred to a hospice care center for acute symptom management of agitation and aggression. . . Family/friend interactions Meeting with grand daughter Reema (now designated as the [facility]) and patient's brother Darrell held this morning at 1000 to discuss code status and goals of care. Advance Directives Living Will: Copy in medical record Health Care Surrogate: Copy in medical record Advance Directive Specifics Date completed: 06/21/2011 . Health Care Surrogate(s): Patient's (Gideon) is designated was originally the healthcare surrogate decision maker. However, she is unable to fill this role secondary to end-stage dementia. The patient's son (Higinio) was designated as the alternate health care surrogate decision maker but he has opted out of making any medical decisions for his father. Per [place] Statutes medical proxy decision making would fall to the granddaughter Reema as patient's is currently in a intermediate due to severe dementia, both sons have opted out of decision making, parents are , and brother Darrell opted out; next in hierarchy would be an adult relative. All family members indicate granddaughter Reema would be most appropriate as she lives locally and is most involved and reliable. . Documented care wishes: A living will was completed on June 21, 2011. Copies have been placed in the patient's paper chart and faxed to HIM to be scanned into the patient's EMR. . Objective Vital Signs Date Time Temp Pulse Resp B/P Pulse Ox O2 Delivery O2 Flow Rate FiO2 01/13/17 08:00 97.7 99 20 141/94 90 01/13/17 05:00 97.8 98 22 121/80 100 01/13/17 00:00 97.3 103 22 134/81 100 01/12/17 19:30 97.5 122 20 134/83 96 Intake & Output 01/13/17 01/13/17 06:59 18:59 # Voids 3 # Bowel Movements 0 Physical Exam CONSTITUTIONAL/GENERAL: This is a frail, elderly male patient who is disoriented and confused. TUBES/LINES/DRAINS: PIV 1, soft wrist restraints. SKIN: No jaundice, rashes, or lesions. Ecchymoses on upper and lower extremities. Bilateral wrist with gauze dressings and with serosanguineous drainage, likely secondary to chronic anticoagulation therapy. HEAD: Atraumatic. Normocephalic. EYES: Pupils equal and round and reactive. No scleral icterus. Minimal injection or drainage noted. Fundi not examined. ENT: Hearing grossly normal. Nose without bleeding or purulent drainage. NECK: Trachea midline. Supple, nontender. No palpable thyroid enlargement or nodularity. CARDIOVASCULAR: Regular rate and rhythm without murmurs, gallops, or rubs. No JVD. Peripheral pulses symmetric. RESPIRATORY/CHEST: Symmetric, unlabored respirations. Clear to auscultation. Breath sounds equal bilaterally. No wheezes, rales, or rhonchi. GASTROINTESTINAL: Abdomen soft, non-tender, nondistended. No hepato-splenomegaly , or palpable masses. No guarding. Bowel sounds present. GENITOURINARY: Without palpable bladder distension. MUSCULOSKELETAL: Extremities without clubbing, cyanosis, or edema. NEUROLOGICAL: Confused, disoriented. Responds to some simple questions with brief answers; speech is primarily nonsensical. PSYCHIATRIC: + Anxiety. . Diagnostic Tests Laboratory Laboratory Tests Test 01/11/17 01/12/17 01/13/17 07:00 14:58 05:13 White Blood Count 9.4 TH/MM3 (4.0-11.0) Red Blood Count 4.50 MIL/MM3 (4.50-5.90) Hemoglobin 14.2 GM/DL (13.0-17.0) Hematocrit 42.3 % (39.0-51.0) Mean Corpuscular Volume 94.2 FL (80.0-100.0) Mean Corpuscular Hemoglobin 31.6 PG (27.0-34.0) Mean Corpuscular Hemoglobin 33.6 % Concent (32.0-36.0) Red Cell Distribution Width 14.0 % (11.6-17.2) Platelet Count 159 TH/MM3 (150-450) Mean Platelet Volume 9.8 FL (7.0-11.0) Neutrophils (%) (Auto) 79.7 % (16.0-70.0) Lymphocytes (%) (Auto) 10.1 % (9.0-44.0) Monocytes (%) (Auto) 8.3 % (0.0-8.0) Eosinophils (%) (Auto) 1.6 % (0.0-4.0) Basophils (%) (Auto) 0.3 % (0.0-2.0) Neutrophils # (Auto) 7.5 TH/MM3 (1.8-7.7) Lymphocytes # (Auto) 0.9 TH/MM3 (1.0-4.8) Monocytes # (Auto) 0.8 TH/MM3 (0-0.9) Eosinophils # (Auto) 0.1 TH/MM3 (0-0.4) Basophils # (Auto) 0.0 TH/MM3 (0-0.2) CBC Comment DIFF FINAL Differential Comment Sodium Level 145 MEQ/L 142 MEQ/L (136-145) (136-145) Potassium Level 3.6 MEQ/L 3.6 MEQ/L (3.5-5.1) (3.5-5.1) Chloride Level 110 MEQ/L 110 MEQ/L (98-107) (98-107) Carbon Dioxide Level 22.8 MEQ/L 23.8 MEQ/L (21.0-32.0) (21.0-32.0) Anion Gap 12 MEQ/L (5-15) 8 MEQ/L (5-15) Blood Urea Nitrogen 35 MG/DL (7-18) 29 MG/DL (7-18) Creatinine 1.02 MG/DL 0.84 MG/DL (0.60-1.30) (0.60-1.30) Estimat Glomerular Filtration 70 ML/MIN (>89) 87 ML/MIN (>89) Rate Random Glucose 89 MG/DL 85 MG/DL (74-106) (74-106) Calcium Level 8.7 MG/DL 8.8 MG/DL (8.5-10.1) (8.5-10.1) Total Bilirubin 1.6 MG/DL 1.7 MG/DL (0.2-1.0) (0.2-1.0) Aspartate Amino Transf 59 U/L (15-37) 53 U/L (15-37) (AST/SGOT) Alanine Aminotransferase 30 U/L (12-78) 31 U/L (12-78) (ALT/SGPT) Alkaline Phosphatase 53 U/L (45-117) 54 U/L (45-117) Total Creatine Kinase 730 U/L 460 U/L (39-308) (39-308) Creatine Kinase MB 8.1 NG/ML 7.4 NG/ML (0.5-3.6) (0.5-3.6) Creatine Kinase MB % 1.1 % (0.0-4.0) 1.6 % (0.0-4.0) Total Protein 6.2 GM/DL 5.8 GM/DL (6.4-8.2) (6.4-8.2) Albumin 3.6 GM/DL 3.4 GM/DL (3.4-5.0) (3.4-5.0) Ammonia 21 MCMOL/L (11-32) Result Diagram: 01/11/17 0700 01/13/17 0513 Assessment and Plan Disease Oriented Problem List: (1) TIA (transient ischemic attack) (2) Atrial fibrillation with RVR (3) Acute worsening of stage 3 chronic kidney disease (4) Paranoid psychosis (5) Dementia (6) Failure to thrive in adult (7) Chronic a-fib (8) Hypertension (9) Hyperlipidemia (10) Hypothyroidism (11) Hx of seizure disorder (12) Parkinson disease Symptom Scale: (1) Confusion (2) Agitation (3) Decreased appetite Pertinent Non-Medical Issues Psychosocial: Patient was born and raised in [place]. 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 He has 1 brother and 1 sister, both are . Patient has been to his , Gideon, for approximately 65 years. Together they have 2 adult sons. One son lives with the patient locally, and the other lives in [place]. Apparently the patient's also has dementia and is in the process of moving to an SNF. The patient's granddaughter, Reema, also lives locally and has requested to speak with Palliative Care to discuss medical treatment goals moving forward. Spiritual: [employer] Legal:No know legal issues at this time. Ethical issues impacting care: No known ethical issues impacting at this time. . Important Contacts Santy Pina, son: [phone] Darian Pina, son:[phone] or [phone] Reema, granddaughter: [phone] Gideon Pina, spouse: [phone] . Prognosis Patient is an 86-year-old male with progressively worsening Alzheimer's dementia (as well as multiple comorbid conditions) who was recently brought to [place] ED on 01/03/2017 under a Phipps act. Since that time he has been transferred back and forth between psych and the medical floor for management of dehydration with VIVIAN, failure to thrive and atrial fibrillation with RVR ( currently a poor candidate for ongoing anticoagulation therapy). Patient remains in nonmedical soft restraints secondary to ongoing persistent agitation and aggressiveness. He is still refusing to eat; BMI 22.2, FTT. A living will was completed on 06/21/2011 and indicates the patient would not want life prolonging interventions or artificial nutrition in the event that he had a end- stage condition, terminal condition or was in a persistent vegetative state. If the patient continues the current disease trajectory; his overall prognosis would be poor. . Code Status: No Code Plan * NO CODE, DNR/DNI * Decision-making: Patient is currently not capacitated to participate in medical decision making. Per [place] Statutes medical proxy decision making would fall to the granddaughter Reema as patient's is currently in a intermediate due to severe dementia, both sons have opted out of decision making , parents are , and brother Darrell opted out; next in hierarchy would be an adult relative. All family members indicate granddaughter Reema would be most appropriate as she lives locally and is most involved and reliable. * A living will was completed on June 21, 2011. Copies have been placed in the patient's paper chart and faxed to HIM to be scanned into the patient's EMR. * Goals: Discussed goals of care with granddaughter Reema (Health Care Proxy) and patient's brother Darrell this morning. Discussed the process of CPR with family including chest compressions, ACLS medications, intubtion and mechanical ventilation. Per patient's indication of his wishes on his living will, the family requests the code status be change to NO CODE, DNR/DNI. * Palliative care continues to follow this patient to assist with symptom management and clarification of medical treatment goals. Met with patient's granddaughter/HCP and brother (Darian) this morning. Patient has completed written advanced directives with state he would not want life prolonging interventions, specifically artificial nutrition, if he were found to have a terminal condition, end-stage condition or be in persistent vegetative state. Given the patient's advanced age, recent acute decline, multiple comorbid conditions and refusal to eat/drink, his life expectancy is less than 6 months. The family has requested the services for symptom management and end-of-life care; recommendations that the patient be transferred to a hospice care center for acute symptom management of agitation and aggression The family understands that medications to control symptoms of agitation/aggression can also have a sedative effect and state their goals is that the patient be comfortable even if he is oversedated. * Symptom managementdecreased appetite: Current nutritional intake is not enough to sustain this patient, and his living will indicates he is not amenable to artificial nutrition. BMI: 22.2 Total protein: 6.2, albumin 3.6. * Symptom managementagitation: Having ongoing, persistent agitation requiring non-medical restraints. Recommendations to avoid Haldol which is contraindicated in patients with Parkinson's disease. Defer additional recommendations-pending likely transfer to Hospice care center today. * Symptom managementconfusion: Persistent confusion likely secondary to progressively worsening Alzheimer's disease, recent hospitalization, electrolyte imbalances/dehydration. Patient currently in nonmedical soft restraints for safety. Requiring ongoing monitoring for safety/comfort, reassurance and redirection when appropriate. Providing ongoing education and support to patient/family. Written information provided to family. * Discussed with patient's nurse (Charissa) and Dr. Lizarraga notified of change in code status and Hospice consult. * Hospice consult placed. Nurse (Charissa) and hospice intake notified. * Palliative care will continue to follow this patient throughout his hospitalization to establish trust, assist with symptom management and clarification of medical treatment goals. . Attestation To help prompt me to consider important information that might be impacting today's encounter and assessment, information from prior notes written by myself or my colleagues may have been "brought forward" into today's note. My signature on this note, however, is an attestation that I personally performed the exam, history, and/or decision-making noted today, and, unless otherwise indicated, the interactions with patient, family, and staff as well as the review of records all occurred today. I also attest that the listed assessment and stated plan reflect my best clinical judgment today based on the combination of historical information, prior notes, and today's exam/ interactions. When time spent is documented, it refers only to time spent today by the signer, or if indicated, combined time spent today by collaborating physician/nurse practitioner. . Sherron Balderrama Jan 13, 2017 11:50
[2017-01-13 12:00] VITALS: BP 129/74; PULSE 99; RESP 20; TEMP 97.7; O2SAT 97
[2017-01-13] MEDS ORDERED: LORA-392 PO (13:19)
[2017-01-13 16:00] VITALS: BP 145/64; PULSE 101; RESP 20; TEMP 97.5; O2SAT 94
== END 2017-01-13 17:51 | disposition hospice, inpatient (51) | DRG 641 ==
LOC: N04B 20:24
PROVIDERS: ADMIT Hospitalist; ATTEND Hospitalist
DX: R62.7 Adult failure to thrive (principal); N17.9 Acute kidney failure, unspecified; I48.2 Chronic atrial fibrillation; G20 Parkinson's disease; E86.0 Dehydration; G30.9 Alzheimer's disease, unspecified; F02.80 Dementia in other diseases classified elsewhere, unspecified severity, without behavioral disturbance, psychotic disturbance, mood disturbance, and anxiety; I12.9 Hypertensive chronic kidney disease with stage 1 through stage 4 chronic kidney disease, or unspecified chronic kidney disease; F32.9 Major depressive disorder, single episode, unspecified; E03.9 Hypothyroidism, unspecified; E78.5 Hyperlipidemia, unspecified; K21.9 Gastro-esophageal reflux disease without esophagitis; Z66 Do not resuscitate; N18.3 Chronic kidney disease, stage 3 (moderate); N40.0 Benign prostatic hyperplasia without lower urinary tract symptoms; Z78.1 Physical restraint status; Z86.73 Personal history of transient ischemic attack (TIA), and cerebral infarction without residual deficits; Z87.891 Personal history of nicotine dependence
CPT/HCPCS: 80048; 80053; 82140; 82550; 82552; 85025; J2060; J3480; J7030